=== PATIENT | female | born 1945 | race Caucasian/White ===

== ENCOUNTER 2020-08-07 22:05 | Emergency (ER) | payer MEDICARE ==
[~2020-08-07] VITALS: Ht 162.6 cm; Wt 63.6 kg
[2020-08-07 23:44] VITALS: BP 152/85
[2020-08-08] MEDS ORDERED: CEPH-264 PO (01:54)
[2020-08-08] MEDS ORDERED: SULF1TAB24 PO (01:54)
--- NOTE | 2020-08-08 01:55 | PHYS DOC ---
Past Medical History Past Medical History: No Pertinent History Past Surgical History: Other Additional Past Surgical Histo: R. CATARACT Smoking Status: Current Every Day Smoker Alcohol Use: None General Adult EDM: Chief Complaint: LOWER EXT PAIN HPI: HPI: 75-year-old female who denies any past medical history, has no routine primary care physician, takes no medications, presents the ED with complaints of red nonpruritic rash on her inner leg for the past 3 days, reports it's increased in size. Does not recall any known trauma or, injury to the skin center bug bite. Patient also complains of right toe pain and infection for the past 4 to 5 months, saw contract agent in [place]-did not prescribe her anything. States she has bumped her big toe multiple times and cracked the nail -recently dropped an object on top of it and states "it's jsut not healing." Cannot recall if tetanus is UTD. Review of Systems: Review of Systems: Constitutional: Denies fever or chills. [] Eyes: Denies change in visual acuity. [] HENT: Denies nasal congestion or sore throat. [] Respiratory: Denies cough or shortness of breath. [] Cardiovascular: Denies chest pain or edema. [] GI: Denies abdominal pain, nausea, vomiting,or diarrhea. [] : Denies dysuria. [] Musculoskeletal: Denies back pain or joint pain. [] Integument: Denies cyanosis, Neurologic: Denies headache, focal weakness or sensory changes. [] Or neck stiffness Endocrine: Denies polyuria or polydipsia. [] Lymphatic: Denies swollen glands. [] Psychiatric: Denies depression or anxiety. [] Heart Score: Risk Factors: Risk Factors: DM, Current or recent (<one month) smoker, HTN, HLP, family history of CAD, obesity. Risk Scores: Score 0 - 3: 2.5% MACE over next 6 weeks - Discharge Home Score 4 - 6: 20.3% MACE over next 6 weeks - Admit for Clinical Observation Score 7 - 10: 72.7% MACE over next 6 weeks - Early Invasive Strategies Allergies: Allergies: Allergies Coded Allergies Type Severity Reaction Last Updated Verified eucalyptus Allergy Unknown 08/07/20 Yes nickel Allergy Unknown 08/07/20 Yes Physical Exam: PE: Constitutional: Well developed, well nourished, HENT: Normocephalic, atraumatic, Eyes: EOMI, conjunctiva normal, Neck: Normal range of motion, supple, Cardiovascular:Heart rate regular rhythm, no murmur [] Lungs & Thorax: Bilateral breath sounds clear to auscultation [] Abdomen: Bowel sounds normal, soft, no tenderness, no masses, no pulsatile masses. [] Skin: Warm, dry, no erythema, ] Back: No tenderness, Extremities: No tenderness, no cyanosis, no clubbing, ROM intact, no edema, no calf swelling, 4 x 4 centimeter indurated erythematous nodule over medial right chaidez, no fluctuance or crepitus, no pain with palpation, no underlying bone tenderness, no pain at the knee or ankle, normal DP and PT on the right, right toe with chronic appearing wound/nontender abnormal growth over the toe nail approximately 1.5x1cm Neurologic: Alert and oriented X 3, normal motor function, normal sensory function, no focal deficits noted. [] Psychologic: Affect normal, judgement normal, mood normal. [] Current Patient Data: Vital Signs: Vital Signs Date Time Temp Pulse Resp B/P (MAP) Pulse Ox O2 Delivery O2 Flow Rate FiO2 08/07/20 23:44 98.1 85 18 152/85 (107) 96 Room Air 98.1 EKG: EKG: [] Radiology/Procedures: Radiology/Procedures: IMAGING REPORT Signed PATIENT: PINO TENORIO ACCOUNT: [id number] : 1945 LOCATION: ER AGE: 75 SEX: F EXAM STATUS: DEP ER ORD. PHYSICIAN: AHSAN DOYLE DO REASON: chornic wound/paion PROCEDURE: TOES RIGHT INDICATION: Reason: chornic wound/paon / Spl. Instructions: / History: COMPARISON: None. IMPRESSION: Right toes of foot: 3 views obtained. Degenerative changes are identified. Soft tissue swelling. There is either an osseous excrescence or ossific density adjacent to the first interphalangeal joint. Please note that plain film is insensitive for the diagnosis of osteomyelitis and if there is clinical concern bone scan or MRI could further assess. Right lower le views obtained. Degenerative changes the knee. No definite acute fracture of the tibia or fibula. Electronically signed by: Davonte Garcia MD (08/08/2020 6:06 AM) [id number] DICTATED and SIGNED BY: DAVONTE GARCIA MD DATE: 08/08/20605 Course & Med Decision Making: Course & Med Decision Making Pertinent Labs and Imaging studies reviewed. (See chart for details) Concern for right leg cellulitis with an abnormal growth of the right toe. Patient will be referred to podiatry for evaluation of this may need toenail removed and biopsy of skin to evaluate for malignancy. Start patient on Keflex and Bactrim for cellulitis. Strict ED return precautions given for severe pain or fever. Encouraged urgent outpatient follow-up with PMD and dietary. Life- threatening processes were considered but are low suspicion at this time, given history and physical exam. Pt was educated on all prescription medications and adverse effects. All patient's questions were answered and pt was stable at time of discharge. Differential includes erythema multiforme, logan-mabel syndrome, toxic epidermal necrolysis, staphylococcal scalded skin syndrome, necrotizing fasciitis/myositis/cellulitis, purpura fulminans, heparin or warfarin induced skin necrosis, drug rash, disseminated intravascular coagulation, disseminated gonococcal disease, vasculitis, septicemia, petechial disorder or coagulopathy, viral exanthem, Kawasaki's disease. I spoken with the patient and her caregivers. I explained the patient's condition, diagnoses and treatment plan based on the information available to me at this time. I have answered the patient and her caregiver's questions and addressed any concerns. The patient and her caregivers have a good understanding of patient's diagnosis, condition and treatment plan as can be expected at this point. Vital signs have been stable. Patient's condition is stable and appropriate for discharge from the emergency department. Patient will pursue further outpatient evaluation with primary care physician or other designated or consulting physician as outlined in the discharge instructions. The patient and/or caregivers are agreeable to this plan of care and follow-up instructions have been explained in detail. The patient and/or caregivers have received these instructions in written form and have expressed an understanding of the discharge instructions. The patient and/or caregivers are aware that any significant change of condition or worsening of symptoms should prompt immediate return to this or the closest emergency department or [facility] to 911. Jasbir Disclaimer: Jasbir Disclaimer: This electronic medical record was generated, in whole or in part, using a voice recognition dictation system. Departure Departure Impression: Primary Impression: Cellulitis of leg, right Additional Impression: Chronic toe pain, right foot Disposition: 01 HOME, SELF-CARE Condition: STABLE Referrals: NO PCP (PCP) Jonah Nguyen MD [facility], [place] Address: [address] [facility] [place] [address] Patient Instructions: Cellulitis Additional Instructions: Vitor Gilbert DPM -YOU WILL LIKELY NEED NAIL REMOVAL/BIOPSY OF TISSUE GROWTH ON TOE Primary Specialties Podiatric Surgery Vitor Gilbert DPM Address: [address] [facility] [address], [facility] [address] [place] [address] EMERGENCY DEPARTMENT GENERAL DISCHARGE INSTRUCTIONS Thank you for coming to [facility] Emergency Department (ED) today and trusting us with you care. We trust that you had a positive experience in our Emergency Department. If you wish to speak to the department management, you may call the Director at [phone]. YOUR FOLLOW UP INSTRUCTIONS ARE FOLLOWS: 1. Do you have a private Doctor? If you do not have a private doctor, please ask for a resource list of physicians or clinics that may be able to assist you with follow up care. 2. The Emergency Physicain has interpreted your x-rays. The X-Ray specialist will also review them. If there is a change in the findings, you will be notified in 48 hours when at all possible. 3. A lab test or culture has been done, your results will be reviewed and you will be notified if you need a change in treatment. ADDITIONAL INSTRUCTIONS AND INFORMATION: 1. Your care today has been supervised by a physician who is specially trained in emergency care. Many problems require more than one evaluation for a complete diagnosis and treatment. We recommend that you schedule your follow up appointment as recommended to ensure complete treatment of you illness or injury. If you are unable to obtain follow up care and continue to have a problem, or if your condition worsens, we recommend that you return to the ED. 2. We are not able to safely determine your condition over the phone nor are we able to give sound medical advice over the phone. For these safety reasons, if you call for medical advice we will ask you to come to the ED for further evaluation. 3. If you have any questions regarding these discharge instructions please call the ED at [phone]. SAFETY INFORMATION: In the interest of safety, wellness, and injury prevention; we encourage you to wear your sealbelt, if you smoke; quite smoking, and we encourage family to use a protective helmet for bicycling and other sporting events that present an increased risk for head injury. IF YOUR SYMPTOMS WORSEN OR NEW SYMPTOMS DEVELOP, OR YOU HAVE CONCERNS ABOUT YOUR CONDITION; OR IF YOUR CONDITION WORSENS WHILE YOU ARE WAITING FOR YOUR FOLLOW UP APPOINTMENT; EITHER CONTACT YOUR PRIMARY CARE DOCTOR, THE PHYSICIAN WHOSE NAME AND NUMBER YOU WERE GIVEN, OR RETURN TO THE ED IMMEDIATELY. Scripts Sulfamethoxazole/Trimethoprim (BACTRIM DS TABLET) 1 Each Tablet 1 TAB PO BID for infection for 10 Days, #20 TAB Prov: AHSAN DOYLE DO 08/08/20 Cephalexin (KEFLEX) 500 Mg Capsule 2 CAP PO Q12HR, #40 CAP Prov: AHSAN DOYLE DO 08/08/20 Justicifation of Admission Dx: Justifications for Admission: Justification of Admission Dx: N/A AHSAN DOYLE DO Aug 08, 2020 01:55
--- NOTE | 2020-08-08 06:10 | RAD ---
INDICATION: Reason: chornic wound/paon / Spl. Instructions: / History: COMPARISON: None. IMPRESSION: Right toes of foot: 3 views obtained. Degenerative changes are identified. Soft tissue swelling. There is either an osseous excrescence or ossific density adjacent to the first interphalangeal joint. Please note that plain film is insensitive for the diagnosis of osteomyelitis and if there is clinical concern bone scan or MRI could further assess. Right lower le views obtained. Degenerative changes the knee. No definite acute fracture of the tibia or fibula. Electronically signed by: Gilberto Villa MD (08/08/2020 6:06 AM) [id number]
== END 2020-08-08 02:06 | disposition home or self-care (01) ==
LOC: ER 22:05
DX: L03.115 Cellulitis of right lower limb (principal); M79.674 Pain in right toe(s); R21 Rash and other nonspecific skin eruption; G89.29 Other chronic pain; F17.200 Nicotine dependence, unspecified, uncomplicated; Z98.890 Other specified postprocedural states; Z88.8 Allergy status to other drugs, medicaments and biological substances
CPT/HCPCS: 73590; 73660; 99284

== ENCOUNTER → 2021-04-24 | Outpatient (CLI) | payer MEDICARE ==
[~2021-04-24] VITALS: Ht 165.1 cm; Wt 74.7 kg
[~2021-04-24] MED LIST: ASA/500T PO; CALC215T8 PO; CEPH-264 PO; CIDE600C PO; HYDR-2763 PO; SULF1TAB24 PO
[2021-04-24 12:56] LABS: BASO # 0.1 x10^3/uL (0.0-0.2); BASO % 1 % (0-3); EOS # 0.2 x10^3/uL (0.0-0.7); EOS % 2 % (0-3); HEMATOCRIT 44.8 % (36.0-47.0); HEMOGLOBIN 15.1 g/dL (12.0-15.5); LYMPH # 1.7 x10^3/uL (1.0-4.8); LYMPH % 18 % (24-48); MEAN CORPUSCULAR HEMOGLOBIN 31 pg (25-35); MEAN CORPUSCULAR HGB CONC 34 g/dL (31-37); MEAN CORPUSCULAR VOLUME 91 fL (79-100); MONO # 0.7 x10^3/uL (0.0-1.1); MONO % 7 % (0-9); NEUT % 73 % (31-73); PLATELET COUNT 323 x10^3/uL (140-400); RED BLOOD COUNT 4.91 x10^6/uL (3.50-5.40); RED CELL DISTRIBUTION WIDTH 14.8 % (11.5-14.5); WHITE BLOOD COUNT 9.7 x10^3/uL (4.0-11.0)
--- NOTE | 2021-04-24 12:59 | EKG ---
[facility] [address] [place] [address] Test Date: 2021-04-24 Test Time: 12:57:24 Pat Name: PINO TENORIO Department: Room: Gender: F Circuit [employer] Supervisor: JJ : 1945 Requested By: MATT DELA CRUZ Order Number: [id number] Reading MD: Bret Perkins MD Measurements Intervals [place] Rate: 75 P: -28 MD: 154 QRS: -16 QRSD: 82 T: 22 QT: 370 QTc: 416 Interpretive Statements SINUS RHYTHM Electronically Signed On 04-24-2021 14:30:04 CDT by Bret Perkins MD
[2021-04-24 13:16] LABS: ALBUMIN 3.8 g/dL (3.4-5.0); ALBUMIN/GLOBULIN RATIO 1.2 (1.0-1.7); CREATININE 1.1 mg/dL (0.6-1.0); GFR 48.2; POTASSIUM 3.9 mmol/L (3.5-5.1); TOTAL BILIRUBIN 0.4 mg/dL (0.2-1.0); TOTAL PROTEIN 7.1 g/dL (6.4-8.2)
== END ==
LOC: SURGPAT 12:10
PROVIDERS: ATTEND Podiatrist
DX: Z01.818 Encounter for other preprocedural examination (principal); R94.31 Abnormal electrocardiogram [ECG] [EKG]; Z89.422 Acquired absence of other left toe(s)
CPT/HCPCS: 80053; 85025; 93005

== ENCOUNTER 2021-04-25 12:36 | Day surgery (SDC) | payer MEDICARE ==
[2021-04-24 12:45] VITALS: BP 168/82
[~2021-04-25] VITALS: Ht 165.1 cm; Wt 74.0 kg
[~2021-04-25 12:36] MED LIST changes: -HYDR-2763 PO; +HYDROmorphone 2 MG/ML VIAL IVP PRN; +IV RINGERS,LACTATED 1000ML 1,000 ML IV SCH; +MORPHINE SULFATE 2 MG/ML VIAL. IVP PRN; +PROCHLORPERAZINE 10 MG/2 ML VIAL. IVP PRN; +fentaNYL PF VIAL 100 MCG/2 ML VIAL IVP PRN
--- NOTE | 2021-04-25 12:55 | PDOC1 ---
History and Physical Date of Admission Date of Admission DATE: 04/25/21 TIME: 12:55 Identification/Chief Complaint Chief Complaint Right great toe pain Source Source: Patient History of Present Illness History of Present Illness Ms Lopez is a 75yo F w/ PMH cataracts s/p corrective surgery, smoker, hard of hearing, and elevated blood pressure without a diagnosis of hypertension who comes to outpatient surgery c/o painful ingrown right great toenail that has been draining and swelling for almost 9 months intermittently. She has been seen in urgent care and on antibiotics previously. She comes in today for definitive treatment with toenail excision. Has pain and some drainage. She has had no vaccines, no cancer screenings and has not seen a primary care physician in over 25 years. Never been hospitalized previously. She did have cataract surgery in 2019. She has been under full anesthesia at age 14 for teeth extraction, no abnormal bleeding or adverse anesthesia effects. EKG reviewed as NSR 75bpm with left axis deviation, no abnormal ST segments or t-waves, normal axes and intervals otherwise Preop labs negative COVID 19 NAAT, WBC 9.7, Hb 15.1, platelets 323, Na 142, K 3.9, BUN 13, Cr 1.1, glucose 129 Past Medical History Cardiovascular: HTN (?) Past Surgical History Past Surgical History: Cataract Removal, Other (Teeth extraction 1958) Family History Family History: Cancer (Colon in sister and mother) Social History Smoke: <1 pack per day ALCOHOL: none Drugs: None Current Medications Current Medications Current Medications Fentanyl Citrate (Fentanyl 2ml Vial) 25 mcg PRN Q5MIN PRN IVP MILD PAIN 1-3; Start 04/25/21 at 06:00; Stop 04/26/21 at 05:59 Fentanyl Citrate (Fentanyl 2ml Vial) 50 mcg PRN Q5MIN PRN IVP MODERATE PAIN 4- 6; Start 04/25/21 at 06:00; Stop 04/26/21 at 05:59 Morphine Sulfate (Morphine Sulfate) 1 mg PRN Q10MIN PRN IVP SEVERE PAIN 7-10; Start 04/25/21 at 06:00; Stop 04/26/21 at 05:59 Ringer's Solution 1,000 ml @ 30 mls/hr Q24H IV ; Start 04/25/21 at 06:00; Stop 04/25/21 at 17:59 Hydromorphone HCl (Dilaudid) 0.5 mg PRN Q10MIN PRN IVP SEVERE PAIN 7-10, 2nd CHOICE; Start 04/25/21 at 06:00; Stop 04/26/21 at 05:59 Prochlorperazine Edisylate (Compazine) 5 mg PACU PRN PRN IVP NAUSEA, MRX1; Start 04/25/21 at 06:00; Stop 04/26/21 at 05:59 Active Scripts Active Reported Antacid (Calcium Carbonate) 215 Mg Tab.chew 215 Mg PO PRN PRN Franklin Plus 500 Mg Caplet (Asa/Calcium Carb/Mag/Al Hydrox) 500 Mg Tablet 500 Mg PO PRN PRN Apple Cider Vinegar (Cider Vinegar) 600 Mg Capsule 600 Mg PO DAILY Allergies Allergies: Coded Allergies: eucalyptus (Verified Allergy, Unknown, 08/07/20) nickel (Verified Allergy, Unknown, 08/07/20) ROS General: No: Chills, Night Sweats, Fatigue, Malaise, Appetite, Other PSYCHOLOGICAL ROS: No: Anxiety, Behavioral Disorder, Concentration difficultie, Decreased libido, Depression, Disorientation, Hallucinations, Hostility, Irritablity, Memory difficulties, Mood Swings, Obsessive thoughts, Physical abuse, Sexual abuse, Sleep disturbances, Suicidal ideation, Other Eyes: No Blurry vision, No Decreased vision, No Double vision, No Dry eyes, No Excessive tearing, No Eye Pain, No Itchy Eyes, No Loss of vision, No Photophobia, No Scotomata, No Uses contacts, No Uses glasses, No Other HEENT: YES: Hearing change; No: Heacaches, Visual Changes, Nasal congestion, Nasal discharge, Oral lesions, Sinus pain, Sore Throat, Epistaxis, Sneezing, Snoring, Tinnitus, Vertigo, Vocal changes, Other ALLERGY AND IMMUNOLOGY: No: Hives, Insect Bite Sensitivity, Itchy/Watery Eyes, Nasal Congestion, Post Nasal Drip, Seasonal Allergies, Other Hematological and Lymphatic: No: Bleeding Problems, Blood Clots, Blood Transfusions, Brusing, Night Sweats, Pallor, Swollen Lymph Nodes, Other ENDOCRINE: No: Breast Changes, Galactorrhea, Hair Pattern Changes, Hot Flashes, Malaise/lethargy, Mood Swings, Palpitations, Polydipsia/polyuria, Skin Changes, Temperature Intolerance, Unexpected Weight Changes, Other Breast: No New/Changing Breast Lumps, No Nipple changes, No Nipple discharge, No Other Respiratory: No: Cough, Hemoptysis, Orthopnea, Pleuritic Pain, Shortness of breath, SOB with excertion, Sputum Changes, Stridor, Tachypnea, Wheezing, Other Cardiovascular: No Chest Pain, No Palpitations, No Orthopnea, No Paroxysmal Noc. Dyspnea, No Edema, No Lt Headedness, No Other Gastrointestinal: No Nausea, No Vomiting, No Abdominal Pain, No Diarrhea, No Constipation, No Melena, No Hematochezia, No Other Genitourinary: No Dysuria, No Frequency, No Incontinence, No Hematuria, No Retention, No Discharge, No Urgency, No Pain, No Flank Pain, No Other, No , No , No , No , No , No , No Musculoskeletal: No Gait Disturbance, No Joint Pain, No Joint Stiffness, No Joint Swelling, No Muscle Pain, No Muscular Weakness, No Pain In:, No Swelling In:, No Other Neurological: No Behavorial Changes, No Bowel/Bladder ControlChng, No Confusion, No Dizziness, No Gait Disturbance, No Headaches, No Impaired Coord /balance, No Memory Loss, No Numbness/Tingling, No Seizures, No Speech Problems, No Tremors, No Visual Changes, No Weakness, No Other Skin: No Dry Skin, No Eczema, No Hair Changes, No Lumps, No Mole Changes, No Mottling, No Nail Changes, No Pruritus, No Rash, No Skin Lesion Changes, No Other, No Acne Physical Exam General: Alert, Oriented X3, Cooperative, mild distress HEENT: Atraumatic, PERRLA, EOMI, Mucous membr. moist/pink Lungs: Clear to auscultation, Normal air movement Heart: S1S2, RRR, no thrills, no rubs, no gallops, no murmurs Abdomen: Normal bowel sounds, Soft, No tenderness, No hepatosplenomegaly, No masses Rectal Exam: not examined Extremities: No clubbing, No cyanosis, No edema, Normal pulses, Other (Right great toe with ingrown nail) Skin: No rashes, No breakdown Neuro: Normal gait, Normal speech, Strength at 5/5 X4 ext, Normal tone, Sensation intact, Cranial nerves 3-12 NL, Reflexes 2+ Psych/Mental Status: Mental status NL, Mood NL Vitals Vitals Vital Signs Date Time Temp Pulse Resp B/P (MAP) Pulse Ox O2 Delivery O2 Flow Rate FiO2 04/24/21 12:45 98.4 90 18 96 98.4 Labs Labs Laboratory Tests Test 04/24/21 12:30 Coronavirus (COVID-19)(PCR) Negative (NEGATIVE) Images Images 08/08/2020: Right toes of foot: 3 views obtained. Degenerative changes are identified. Soft tissue swelling. There is either an osseous excrescence or ossific density adjacent to the first interphalangeal joint. Please note that plain film is insensitive for the diagnosis of osteomyelitis and if there is clinical concern bone scan or MRI could further assess. Right lower le views obtained. Degenerative changes the knee. No definite acute fracture of the tibia or fibula. VTE Prophylaxis Ordered VTE Prophylaxis Devices: No VTE Pharmacological Prophylaxi: No Assessment/Plan Assessment/Plan A/P: Right ingrown nail - no clear deeper infection. EKG normal. She is moderate cardiac risk for a low risk surgery. No further testing prior to planned surgery. Elevated blood pressure without diagnosis of hypertension Impaired fasting glucose - Greater than 120 on fasting labs. Would repeat and check outpatient A1c. Given her age < 80 could possibly benefit from metformin Smoker - counseled on cessation Family history of colon cancer - in mother and sister, advised a colonoscopy and screening would be appropriate as well as vaccinations FEN - NPO CODE - FULL Dispo - No further testing prior to planned surgery. Given outpatient primary care referral Justifications for Admission Other Justification ELISABETH FORD MD Apr 25, 2021 12:55
[2021-04-25] MEDS ORDERED: LIDOCAINE 2% PF 5 ML VIAL. ONE (13:02)
[2021-04-25] MEDS ORDERED: PROPOFOL 10 MG/ML (20ML) VIAL. IV ONE (13:02)
[2021-04-25 13:05] VITALS: BP 173/83
[2021-04-25] MEDS ORDERED: ceFAZolin SODIUM IV Push 1 GM VIAL. IVP ONE (13:41)
[2021-04-25] MEDS ORDERED: LIDOCAINE 1% Multi-Dose 20 ML VIAL. ONE (13:55)
[2021-04-25] MEDS ORDERED: BUPIVACAINE MPF 0.5% 30 ML VIAL. ONE (13:55)
[2021-04-25] MEDS ORDERED: DEXAMETHASONE SOD PHOS 4 MG/ML VIAL ONE (14:00)
[2021-04-25] MEDS ORDERED: SEVOFLURANE 61 TO 120 MINUTES. IH ONE (14:00)
[2021-04-25] MEDS ORDERED: ONDANSETRON PF 4 MG/2 ML VIAL. ONE (14:00)
[2021-04-25] MEDS ORDERED: SEVOFLURANE 31 TO 60 MINUTES. IH ONE (14:44)
[2021-04-25 15:10] VITALS: BP 183/95
[2021-04-25] MEDS ORDERED: HYDR-2763 PO (15:14)
[2021-04-25] MEDS ORDERED: HYDROcodone/APAP 7.5/325MG 1 TAB TABLET ONE (15:16)
[2021-04-25] MEDS ORDERED: HYDROcodone/APAP 7.5/325MG 1 TAB TABLET PO ONE (15:30)
--- NOTE | 2021-04-26 16:40 | OP ---
DATE OF SURGERY: 04/25/2021 PREOPERATIVE HISTORY: This patient has had problems with ingrown right great toenail that had become infected and consideration for bone infection is noted on x-ray. It was decided due to also the pigmentation of the nail bed to go ahead and amputate the toe and determine if there is any cancerous growth and to resolve the bone infection by doing a partial amputation of the right great toe. The patient understands the objectives of the surgery and was seen in the preoperative area. Consent forms were signed and was willing to proceed. PROCEDURE: Partial amputation of right great toe. ANESTHESIA: General anesthesia with a regional block of the foot using 0.5% Marcaine and 1% Xylocaine plain, approximately 10 mL total. DESCRIPTION OF PROCEDURE: The patient was brought to the operating room, induced with a general anesthetic. A digital block was performed. The foot was prepped with Betadine and draped with sterile linen. Tourniquet was applied at the ankle and inflated to 250 mmHg. Attention was directed to the right great toe where an incision was made to excise the distal part of the toe, it was disarticulated at the distal interphalangeal joint. Specimens were removed for pathology reports. The distal part of the proximal phalanx was resected with a reciprocating saw and also submitted for specimen to rule out bone infection. The area was inspected. The deep structures were closed with 3-0 Vicryl. The skin edges were approximated and flap was created from a plantar aspect of the toe and that was closed with 4-0 nylon. A Xeroform dressing was applied to the incision site and a copious dressing of gauze was applied. Tourniquet was deflated. Capillary filling time returned to digits. Tourniquet was deflated. The patient left the operating room in satisfactory condition. The patient was given a prescription for Lawai 7.5/325 mg one tablet q.4-6 hours p.r.n. pain, #30. POSTOPERATIVE PLAN: The patient will be seen in the office either next Thursday or Thursday. MARTIN DR: Britney TID: [id number]
--- NOTE | 2021-05-02 19:08 | PATHOLOGY ---
[facility] Accession Number: [id number] . 01 Material submitted: . PART A: toe - RIGHT GREAT TOE. Modifiers: right, great PART B: PHALANX - BASE OF PROXIMAL PHALANX. Modifiers: base, proximal PART C: PHALANXY - DISTAL PROXIMAL PHALANX. Modifiers: distal, proximal . 01 Clinical history: . CELLULITIS OF RIGHT GREAT TOE RIGHT GREAT TOE PARTIAL AMPUTATION . 02 Diagnosis: A. Right great toe partial amputation: - MALIGNANT MELANOMA, ACRAL NODULAR, AT LEAST DELMAR'S LEVEL IV, AT LEAST BRESLOW'S THICKNESS 7.0 MM, ULCERATED. SEE SYNOPTIC REPORT. - Tumor is approximately 3 mm from the closest proximal skin and subcutaneous tissue amputation margin. - Proximal bone amputation margin negative for tumor. . B. Segment of bone and dense fibroconnective tissue, base of proximal distal phalanx: - Negative for tumor. . C. Segment of bone and attached cartilage and fibrous tissue, distal proximal phalanx: - Negative for tumor. (JPM/db/logan; 05/02/2021) [facility] 05/02/2021 1819 Local . 02 Comment: Sections of the right great toe partial amputation reveal an ulcerated, poorly differentiated epithelioid and spindle cell neoplasm. A properly controlled immunoperoxidase stain for hill-cale-red is obtained on block A2. The tumor cells are diffusely positive. The findings are supportive of the diagnosis of malignant melanoma. The case is also examined by Dr. Oconnell, dermatopathologist, who concurs with the diagnosis. The case is discussed with Dr. Vitor Gilbert on 05/02/2021 at 2:18 p.m. (JPM:logan; 05/02/2021) . Special stain performed: Immunoperoxidase stain for Hill-Cale Red on A2 . . Surgical Pathology Cancer Case Summary . Protocol posting date: February 2020 . MELANOMA OF THE SKIN: Excision, Re-Excision . Procedure ___ Other (specify): Partial great toe amputation . + Specimen Laterality +___ Right . Macroscopic Satellite Nodule(s) ___ Not identified . Histologic Type . Invasive Melanoma ___ Other histologic type not listed: Acral nodular melanoma . Maximum Tumor (Breslow) Thickness At least 7.0 mm . Ulceration ___ Present . Microsatellite(s) ___ Possibly present adjacent to tumor. . Margins . Deep Margin# ___ Negative for invasive melanoma . Mitotic Rate ___ Specify (mitoses/mm2): 22 mitoses/mm2 . + Anatomic (Delmar) Level + ___ At least Delmar's level IV . Lymphovascular Invasion ___ Not identified . Neurotropism ___ Not identified . + Tumor-Infiltrating Lymphocytes + ___ Not identified . Tumor Regression ___ Not identified . Regional Lymph Nodes ___ No lymph nodes submitted or found . Pathologic Stage Classification (pTNM, AJCC 8th Edition) . Primary Tumor (pT) ___ pT4b: Melanoma >4.0 mm in thickness, with ulceration . Regional Lymph Nodes (pN) ___ pNX: Regional lymph nodes not assessed . (JPM:logan; 05/02/2021) . 02 Electronically signed: . Abhijeet Noguera MD, Pathologist NPI- [id number] . 01 Gross description: . A. The specimen is received in formalin, labeled "Virgen Lopez, right great toe" is a 3.2 x 3 x 2.5 cm amputated digit remarkable for complete destruction of the nail bed by a 2.5 x 1.7 cm ulcer coming to within 0.2 cm of the skin and soft tissue margins. It is difficult to determine viability of the skin soft tissue and bone margins which are now inked black. The bone underlying the ulcerated area is focally hemorrhagic. Knowledge Architect sections A1 shave decalcified bone margin A2 relationship of ulcerated area to black inked skin and soft tissue margin A 3 decalcified longitudinal section of bone underlying ulcerated area . B. The specimen is received in formalin, labeled "Block Virgen, and base of proximal phalanx" is a 1.5 x 0.8 x 0.6 cm irregular fragment of bone partially covered by dense fibroconnective tissue decalcified section and entirely submitted in B1. . C. The specimen is received in formalin, labeled "Block, Virgen, distal proximal phalanx" is a 1.7 x 1 x 0.8 cm portion of bone consistent with part of an articulating joint which is decalcified, sectioned and entirely submitted in C1. ([facility]; 04/28/2021) SUSHILA/P 04/29/2021 [facility] Local . 02 Pathologist provided ICD-10: D03.71 . 02 CPT . 705436, 269436, [id number], 640307, [id number], [id number], [id number] Specimen Comment: A courtesy copy of this report has been sent to [phone] Specimen Comment: Report sent to Specimen Comment: Report sent to Performed at: 01 [facility] [address], [place] [id number] MD Isaiah Gonzalez MD Phone: [phone] Performed at: 02 [facility] [address] [place], [place] [id number] MD Abhijeet Noguera MD Phone: [phone]
== END 2021-04-25 15:38 | disposition home or self-care (01) ==
LOC: SURG 12:36
PROVIDERS: ATTEND Podiatrist
DX: L60.0 Ingrowing nail (principal); K21.9 Gastro-esophageal reflux disease without esophagitis; E66.9 Obesity, unspecified; M19.90 Unspecified osteoarthritis, unspecified site; F17.210 Nicotine dependence, cigarettes, uncomplicated; Z79.899 Other long term (current) drug therapy; Z98.890 Other specified postprocedural states
CPT/HCPCS: 28810; A4930; A6449; J0690; J1100; J2405; J2704; J3490; U0003